=== PATIENT | male | born 1980 | race African-American/Black ===

== ENCOUNTER 2016-06-27 12:53 | Emergency (ER) | payer OTHER ==
[~2016-06-27] VITALS: Ht 185.4 cm; Wt 99.8 kg
[2016-06-27] MEDS ORDERED: MORPHINE 4 MG/ML 1ML SYRINGE IV ONE (13:15)
[2016-06-27] MEDS ORDERED: NS 1,000 ML IV ONE (13:15)
[2016-06-27] MEDS ORDERED: ONDANSETRON 4MG/2ML VIAL (J2405) IV ONE (13:15)
[2016-06-27] MEDS ORDERED: LIDOCAINE 2% MDV 20 ML VIAL SC ONE (13:45)
--- NOTE | 2016-06-27 14:07 | REP ---
Left hand four views: There is posterolateral dislocation of the base of the fifth digit middle phalange. There is no fracture. Mineralization and joint spaces are otherwise unremarkable. Signed by Kyle Alexandra MD 06/27/2016 01:58 P
[2016-06-27] MEDS ORDERED: MORPHINE 4 MG/ML 1ML SYRINGE IV PRN (14:30)
[2016-06-27] MEDS ORDERED: NORCOTAB PO (15:03)
[2016-06-27] MEDS ORDERED: KEFL500C7 PO (15:03)
--- NOTE | 2016-06-27 15:40 | REP ---
Left hand fifth digit four views: Comparison is the left hand series performed earlier today. The dislocation at the fifth digit PIP as been satisfactorily reduced and the digits are in satisfactory position alignment on all views. There is no fracture or foreign body. Signed by Kyle Alexandra MD 06/27/2016 03:32 P
[2016-06-27 15:53] VITALS: BP 122/73
--- NOTE | 2016-06-27 15:53 | HPE ---
DATE OF ADMISSION: 06/27/2016 CHIEF COMPLAINT: Left small finger pain and deformity. HISTORY OF PRESENT ILLNESS: The patient was playing football and a ball struck his hand on the small fingertip. He noticed immediate deformity of his left small finger with an open laceration and exposed bone, and presented promptly to the emergency room. I was consulted and presented to evaluate the patient. He is complaining of pain and deformity isolated to the left hand small finger. He has no other complaints at this time. He has no significant past medical history. PHYSICAL EXAMINATION: On examination, he is awake, alert, and oriented times three, well-appearing male in no acute distress. Focused examination of his left hand small finger: There is an open dislocation with exposed distal one-third of the proximal phalanx. Distally the fingertip is pink and well perfused with sensation grossly intact to light touch, and less than two seconds capillary refill. He does demonstrate intact flexor extensor function in the small finger. Remainder of the examination of the small finger and hand is otherwise negative, to include the wrist and forearm. X-rays of the left hand show complete dislocation of the small finger proximal interphalangeal joint. ASSESSMENT: Open dislocation of the left hand small finger as above. PLAN: After obtaining a verbal consent, I performed a local ring block, followed by a gentle closed reduction. Following this, the digit was taken through a full range of motion and it was stable throughout. Additionally, he demonstrated grossly fully intact flexor and extensor tendon function, and he remained fully neurovascularly intact. The wound had been copiously irrigated prior to this, and it was clean of any debris. He had also been given intravenous (IV) antibiotics and his tetanus was up to date. The wound was again irrigated and closed loosely with a single nylon suture. This was about a 1 cm clean, linear laceration in the small finger web space. He was placed in a well-padded finger splint, and post-reduction x-rays confirmed satisfactory congruent reduction and, again, he remained fully neurovascularly intact after the reduction after a period of monitoring. The plan at this time is he will be discharged to home, appropriate restrictions to protect the hand and small finger. He will be given Keflex, and he will followup with me in the orthopedic clinic at 10 a.m. on [place] for repeat examination, or earlier as needed. Counseled regarding appropriate care of the splint and to leave his dressings intact and monitor the neurovascular status of the small finger. All of his questions were answered, along with I believe his spouse who was present, and they are satisfied with the treatment at this time.
== END 2016-06-27 15:56 | disposition home or self-care (01) ==
LOC: M ED 13:36
DX: S63.287A Dislocation of proximal interphalangeal joint of left little finger, initial encounter (principal); S61.217A Laceration without foreign body of left little finger without damage to nail, initial encounter; W21.01XA Struck by football, initial encounter; Y92.89 Other specified places as the place of occurrence of the external cause; Y93.61 Activity, american tackle football; Y99.8 Other external cause status; Z88.0 Allergy status to penicillin
CPT/HCPCS: 12001; 26770; 73130; 73140; 96365; 96366; 96375; 99283; J0690; J2405

== ENCOUNTER 2017-02-18 15:32 | Observation (INO) | payer OTHER ==
[~2017-02-18] VITALS: Ht 188 cm; Wt 102.4 kg
[~2017-02-18 15:32] MED LIST: KEFL500C17 PO; NORCOTAB PO
[2017-02-18] MEDS ORDERED: NS 1,000 ML IV ONE (16:30)
[2017-02-18 16:40] LABS: BASO % 0.5 % (0.0-1.0); EOS # 0.1 10^3/uL (0.0-0.50); EOS % 0.6 % (0.0-3.0); IMMATURE GRANULOCYTE % 0.4 % (0-0); LYMPH % 25.3 % (24.0-44.0); MEAN CORPUSCULAR HEMOGLOBIN 26.2 pg (27.0-33.0); MEAN CORPUSCULAR HGB CONC 32.9 g/dl (32.0-36.5); MEAN CORPUSCULAR VOLUME 79.6 fl (80.0-96.0); MONO # 0.6 10^3/uL (0.0-0.8); MONO % 7.3 % (0.0-5.0); NEUTROPHILS # 5.2 10^3/uL (1.8-7.7); NEUTROPHILS % 65.9 % (36.0-66.0); PLATELET COUNT, AUTOMATED 208 10^3/uL (150-450); RED CELL DISTRIBUTION WIDTH 13.8 % (11.5-14.5); WHITE BLOOD COUNT 7.8 10^3/uL (4.0-10.0)
--- NOTE | 2017-02-18 16:57 | REP ---
Head CT without contrast: History: Frontal headaches. History of a fall. Comparison study: No comparison study. CT findings: Bone window settings demonstrate an intact bony calvarium. There is no evidence of skull fracture or incidental bony calvarial lesion. The visualized paranasal sinuses appear clear. No intraorbital abnormality is seen. On soft tissue window setting images; the lateral, third, and fourth ventricles are normal in size and position. Colon-white differentiation pattern is normal above and below the tentorium. There are is no evidence of intracranial hemorrhage. No mass, edema, infarction, or midline shift is seen. No extra-axial fluid collection is appreciated. Impression: Negative noncontrast head CT. Signed by Khang Bell MD 02/18/2017 04:49 P
[2017-02-18 17:40] LABS: ALBUMIN 4.3 GM/DL (3.2-5.2); ALBUMIN/GLOBULIN RATIO 1.08 (1.00-1.93); ALKALINE PHOSPHATASE 51 U/L (45-117); ALT/SGPT 29 U/L (12-78); ANION GAP 5 MEQ/L (8-16); AST/SGOT 23 U/L (7-37); BILIRUBIN,DIRECT 0.1 MG/DL (0.0-0.2); BILIRUBIN,TOTAL 0.7 MG/DL (0.2-1.0); BLOOD UREA NITROGEN 15 MG/DL (7-18); CARBON DIOXIDE LEVEL 30 MEQ/L (21-32); CHLORIDE LEVEL 105 MEQ/L (98-107); CREATININE FOR GFR 1.65 MG/DL (0.70-1.30); GLOMERULAR FILTRATION RATE > 60.0 (>60); GLUCOSE, FASTING 88 MG/DL (70-105); SODIUM LEVEL 140 MEQ/L (136-145); TOTAL PROTEIN 8.3 GM/DL (6.4-8.2)
--- NOTE | 2017-02-18 19:19 | REP ---
REASON FOR EXAM: Chest pain. FINDINGS: The superior mediastinal structures are midline. The cardiac silhouette is unremarkable in size, shape, and position. The diaphragmatic surfaces of the lungs are regular, and the costophrenic angles are clear. The pulmonary liu are clear. The imaged osseous structures are intact. IMPRESSION: There is no acute cardiopulmonary disease. Signed by Hua Gregg DO 02/18/2017 07:40 P
[2017-02-18] MEDS: NS 1,000 ML IV SCH (19:45)
[2017-02-18] MEDS ORDERED: NS 1,000 ML IV SCH (20:15)
[2017-02-18] MEDS ORDERED: ACETAMINOPHEN TAB 650MG DOSE (2X325MG) PO PRN (20:15)
--- NOTE | 2017-02-18 20:18 | ECGEPIP ---
Stationary ECG Study [facility] - ED Test Date: 2017-02-18 Pat Name: SHEYLA MCKEON Department: Room: - Gender: M [employer] Supervisor: andrei : 1980 Requested By: Diana Trinh Order Number: [id number] Reading MD: James Solares Measurements Intervals [place] Rate: 80 P: 50 CT: 184 QRS: 19 QRSD: 97 T: -26 QT: 356 QTc: 411 Interpretive Statements SINUS RHYTHM ST ELEVATION CONSISTENT WITH INJURY, PERICARDITIS, OR EARLY REPOLARIZATION CLINICAL CORRELATION NO PRIORS FOR COMPARISON Electronically Signed On 02-18-2017 20:18:26 EST by James Solares
[2017-02-18 22:00] VITALS: BP 119/56
--- NOTE | 2017-02-18 22:13 | HPE ---
DATE OF ADMISSION: 02/18/2017 ATTENDING PHYSICIAN: Dr. Min TRENCH PIPE LAYER: Dr. Marvin, Spindle Setter. CHIEF COMPLAINT: Syncopal episode. HISTORY OF THE PRESENT ILLNESS: The patient is a 36-year-old male without significant past medical history who presented to the emergency room (ER) for evaluation of syncopal episode. The history is provided by himself. Per the patient, he is from [place]. He had an episode of syncope back to 2013. For that, he underwent stress echo test with Dr. Marvin, which reportedly was normal. Since then, he was doing pretty well until today. Around 2:30 p.m., he was running in an indoor track. After running about a quarter mile, he passed out, and he denies any symptoms before syncope happened. He could not remember what happened. He woke himself, and he said he was a little bit confused after syncopal episode. Then, he was brought to the ER for further evaluation. In the ER, his initial workup in the ER is not significant. The medicine service was called for admission. REVIEW OF SYSTEMS: Mild headache after syncopal episode. Denies fever. No chills. No chest pain. No shortness of breath. He states he felt a little bit of tightness in his chest. No abdominal pain. No diarrhea. No constipation. No tingling, numbness, weakness in the arms or lower extremities and all rest of systems reviewed but negative. PAST MEDICAL HISTORY: Syncopal episode in 2013 with negative workup. No history of high blood pressure, diabetes or cardiac arrhythmia. PAST SURGICAL HISTORY: None. ALLERGIES: Allergic to PENICILLIN. MEDICATIONS: No regular medications. FAMILY HISTORY: No family history of sudden or heart issues. SOCIAL HISTORY: Denies tobacco use. Social drinker. No illicit drug abuse. He is a [employer]. PHYSICAL EXAMINATION: VITAL SIGNS: Temperature 98, heart rate 64, respiratory rate 14 , blood pressure 124/68, oxygen saturation 96% in room air. GENERAL: He is awake, alert, oriented times three. He is not in acute distress. HEENT: Atraumatic. Pupils equal, round, reactive to light. No jaundice. Extraocular muscles intact. Ears, nose and throat normal. NECK: No jugular venous distention (JVD), no bruits. LUNGS: Clear. No wheezing, no crackles. HEART: S1, S2, regular. No murmur. ABDOMEN: Soft. Bowel sounds positive, nontender. LOWER EXTREMITIES: No edema in bilateral lower extremities. SKIN: No rash. NEUROLOGIC: Nonfocal. PSYCHOLOGIC: No acute psychosis. DIAGNOSTIC AND LAB STUDIES: Include the following: CBC and differential showed WBC 7.8, hemoglobin and hematocrit 15.7 over 47.1, platelets 208. Sodium 140, potassium 4.0, chloride 105, bicarbonate 30, BUN 15, creatinine 1.65, glucose 88, CK level is mildly elevated at 437. Head CT was negative. EKG reviewed, chest x-ray reviewed, was negative. IMPRESSION: 1. Syncopal episode. 2. Mild rhabdomyolysis and acute renal failure. PLAN: The patient will be admitted for observation. Will continue swiss machinist to rule out any cardiac arrhythmia. Will consult cardiology, Dr. Marvin, Will gently hydrate him and repeat his basic metabolic profile as well as CK level in the morning. AL
[2017-02-19 02:00] VITALS: BP 116/56
[2017-02-19 06:00] VITALS: BP 94/53
[2017-02-19] MEDS: NS 1,000 ML IV SCH ×2 (06:19→15:45)
[2017-02-19 06:38] LABS: MEAN CORPUSCULAR HEMOGLOBIN 26.3 pg (27.0-33.0); MEAN CORPUSCULAR HGB CONC 33.6 g/dl (32.0-36.5); MEAN CORPUSCULAR VOLUME 78.4 fl (80.0-96.0); PLATELET COUNT, AUTOMATED 181 10^3/uL (150-450); RED CELL DISTRIBUTION WIDTH 13.8 % (11.5-14.5); WHITE BLOOD COUNT 6.5 10^3/uL (4.0-10.0)
[2017-02-19 06:59] LABS: ANION GAP 8 MEQ/L (8-16); BLOOD UREA NITROGEN 11 MG/DL (7-18); CALCIUM LEVEL 7.9 MG/DL (8.5-10.1); CARBON DIOXIDE LEVEL 26 MEQ/L (21-32); CHLORIDE LEVEL 109 MEQ/L (98-107); GLOMERULAR FILTRATION RATE > 60.0 (>60); GLUCOSE, FASTING 103 MG/DL (70-105); POTASSIUM SERUM 3.8 MEQ/L (3.5-5.1); SODIUM LEVEL 143 MEQ/L (136-145)
[2017-02-19] MEDS: ENOXAPARIN 30 MG/0.3 ML SYR (J1650) SC SCH (09:25)
[2017-02-19 10:00] VITALS: BP 121/63
[2017-02-19 14:00] VITALS: BP 139/58
--- NOTE | 2017-02-19 16:05 | IPN ---
DATE: 02/19/2017 SUBJECTIVE: The patient tells me that he is feeling completely back to normal at this time and has no significant complaints. He tells me that he is feeling much better. OBJECTIVE: Vital signs: Temperature 98.2, pulse 55, respiratory rate 17, blood pressure 94/53, oxygen saturation 96% on room air. General: He is a well built, young, muscular -[place] male, sitting in bed, in no acute distress. HEENT: Cranial nerves II-XII are grossly intact. He has moist mucous membranes. No carotid bruits. Cardiovascular exam: S1, S2, regular. Respiratory exam is clear. Abdominal exam is benign. Extremities: No clubbing, cyanosis or edema. LABORATORY STUDIES: WBC 6.5, hemoglobin 13.5, platelet count 181. Chemistry panel: Sodium 143, potassium 3.8, chloride 109, bicarbonate 26, BUN 11, creatinine 1.4 down from 1.6, total CK is 418 down from 437, troponin is 0.15 up from 0.10, TSH within normal limits IMAGING: The patient did have a CT scan of the head that was a negative noncontrast study. He also did have a chest x-ray, which revealed no acute cardiopulmonary disease. ASSESSMENT AND PLAN: This is a 36-year-old man with recurrent bouts of syncope and mild rhabdomyolysis with acute kidney injury. PROBLEMS: 1. Recurrent syncope. He is monitored on remote telemetry. Dr. Marvin's help is greatly appreciated. I did confirm with him today that he will see the patient in consultation. He had previously had an echocardiogram and worked him up on the outpatient setting with a stress test in the past. However, he has had recurrent episodes of syncope and there is an equivocal troponin at this time. 2. Acute kidney injury improving without intravenous (IV) fluid. 3. Mild rhabdomyolysis possibly related to dehydration and mild rhabdomyolysis does appear to be resolving. Will continue to monitor for now. DISPOSITION: Pending cardiology evaluation and improvement in renal function. I suspect he may be able to be discharged over the next 24-48 hours.
[2017-02-19 18:00] VITALS: BP 128/60
--- NOTE | 2017-02-19 19:42 | ECHO ---
DATE OF PROCEDURE: 02/19/2017 REFERRING PHYSICIAN: Dona Min MD PATIENT LOCATION: Room 4217 REASON FOR ECHOCARDIOGRAM: Cardiac arrhythmias. 2D MEASUREMENTS: IVS: 1.3 cm LV: 5.0 cm LVPW: 1.3 cm LA: 3.6 cm Aorta: 3.8 cm IVC: 1.6 cm DOPPLER MEASUREMENTS: Peak velocity across the aortic valve: 1.3 m/s Peak velocity across the LVOT: 1.1 m/s Mitral E: 0.83, Mitral A: 0.63, with a ratio of 1.3 2D COMMENTS: 1. Normal left ventricular size with probably mildly increased left ventricular wall thickness. Left ventricular systolic function is normal with a left ventricular ejection fraction (LVEF) estimated at 65 to 70%. 2. Normal left atrium. The right atrium appeared to be minimally enlarged in limited views. The right ventricle free wall was not well visualized. 3. The atrial septum appeared to be normal without evidence of defect or shunt. 4. Mildly dilated aortic root at 3.8 cm. 5. No pericardial effusion seen. 6. The aortic valve, mitral valve, tricuspid valve and pulmonic valve appeared to be normal. The proximal pulmonary artery branches were not well visualized. 7. The inferior vena cava is normal in size, central venous pressure is most likely normal. DOPPLER: It detects mild mitral regurgitation and trace tricuspid regurgitation. The calculated pulmonary artery systolic pressure was normal. Assessment of the left ventricular diastolic function appeared to be normal. IMPRESSION: 1. Normal global left ventricular systolic function with probably mild concentric left ventricular hypertrophy. 2. Mild mitral regurgitation. 3. Trace tricuspid regurgitation. 4. Mildly dilated aortic root at 3.8 cm.
[2017-02-19 22:00] VITALS: BP 138/70
[2017-02-20] MEDS: NS 1,000 ML IV SCH (01:45)
[2017-02-20 02:00] VITALS: BP 113/62
[2017-02-20 05:44] LABS: MEAN CORPUSCULAR HEMOGLOBIN 25.9 pg (27.0-33.0); MEAN CORPUSCULAR HGB CONC 32.9 g/dl (32.0-36.5); MEAN CORPUSCULAR VOLUME 78.5 fl (80.0-96.0); PLATELET COUNT, AUTOMATED 160 10^3/uL (150-450); RED CELL DISTRIBUTION WIDTH 13.8 % (11.5-14.5); WHITE BLOOD COUNT 5.9 10^3/uL (4.0-10.0)
[2017-02-20 06:00] VITALS: BP 129/78
[2017-02-20 06:08] LABS: ANION GAP 6 MEQ/L (8-16); BLOOD UREA NITROGEN 10 MG/DL (7-18); CALCIUM LEVEL 8.3 MG/DL (8.5-10.1); CARBON DIOXIDE LEVEL 28 MEQ/L (21-32); CHLORIDE LEVEL 109 MEQ/L (98-107); CREATININE FOR GFR 1.24 MG/DL (0.70-1.30); GLOMERULAR FILTRATION RATE > 60.0 (>60); GLUCOSE, FASTING 95 MG/DL (70-105); SODIUM LEVEL 143 MEQ/L (136-145)
[2017-02-20] MEDS: ENOXAPARIN 30 MG/0.3 ML SYR (J1650) SC SCH (08:56)
[2017-02-20 10:00] VITALS: BP 135/85
--- NOTE | 2017-02-20 11:33 | DSES ---
DATE OF ADMISSION: 02/18/2017 DATE OF DISCHARGE: DISCHARGE DIAGNOSIS: Syncope. SECONDARY DIAGNOSES: 1. Acute kidney injury. 2. Rhabdomyolysis. HOSPITAL COURSE: The patient is a 36-year-old man who has had recurrent bouts of syncope over the last several years. He has been seen and evaluated by Dr. Marvin in the past and had a stress test previously and was told everything was normal. While he was working out as part of his active duties, he was running on the track and had an episode where he lost consciousness during strenuous activity, as it was for his previous episode as well. There is no family history of sudden cardiac . He was admitted to telemetry monitoring. He did have an echocardiogram, which Dr. Marvin read and it revealed normal global LV systolic function, mild concentric left ventricular hypertrophy, mild mitral regurgitation, trace tricuspid regurgitation and mildly dilated aortic root at 3.[address] Marvin did see the patient in consultation while he was here and stated that the patient was stable for discharge home with close followup in his office on Wednesday for an event monitor. SUBJECTIVE: Today, the patient tells me that he is feeling better and feels back to baseline and normal since the event. OBJECTIVE: Vital signs: Temperature 97.6, pulse 72, respiratory rate 16, blood pressure 129/78, oxygen saturation 98% on room air. General: He is a well built, -[place] male, lying in bed. He does not appear to be in any acute distress. HEENT: Cranial nerves II-XII are grossly intact. He has moist mucous membranes. No elevation in central venous pressure. Cardiovascular exam: S1, S2, regular. Respiratory exam is clear. Abdominal exam is benign. Extremities: No clubbing, cyanosis or edema. LABORATORY STUDIES: WBC 5.9, hemoglobin 13.6, platelet count 160. Chemistry panel: Sodium 143, potassium 4.0, chloride 109, bicarbonate 28, BUN 10, creatinine 1.2. He did have an equivocal troponin at 0.15 peak, and it trended down to 0.13. IMAGING: He did have a CT scan of the head which was a negative noncontrast head CT. He also had a chest x-ray, which revealed no acute cardiopulmonary disease. ASSESSMENT AND PLAN: This is a 36-year-old man with unexplained recurrent bouts of syncope associated with activity. PROBLEMS: 1. Recurrent syncope associated with intense activity. Dr. Marvin will see the patient on Wednesday and place an event monitor on him. He may warrant referral to healthcare network consultant. Dr. Marvin's help is greatly appreciated. Echocardiogram has been outlined as above. He has had a negative stress test in the past. His equivocal troponin is curious, but did resolve. We will defer to his welfare officer. 2. Acute kidney injury improved with intravenous (IV) fluid. 3. Mild rhabdomyolysis, improved with IV fluids. DISPOSITION: The patient is being discharged home. He is independent of his activities of daily living. He is at his functional baseline. His symptoms have resolved. He will require further followup with Dr. Marvin within 7 days. He is to followup with his primary care provider within 7 days as well. He will have an event recorder placed on Wednesday. No driving until followup with Dr. Marvin. His diet is as prior to admission. He is to return to the emergency room if symptoms worsen. The patient was on no medications prior to admission and is not being discharged on any medications.
== END 2017-02-20 12:49 | disposition home or self-care (01) ==
LOC: M ED 15:32 → M ED INP 20:15 → M MSPAV 22:45
PROVIDERS: ADMIT Hospitalist; ATTEND Internal Medicine
DX: R55 Syncope and collapse (principal); N17.9 Acute kidney failure, unspecified; M62.82 Rhabdomyolysis; R51 Headache; I34.0 Nonrheumatic mitral (valve) insufficiency; I36.1 Nonrheumatic tricuspid (valve) insufficiency; I35.0 Nonrheumatic aortic (valve) stenosis

== ENCOUNTER 2017-05-30 12:57 | Emergency (ER) | payer OTHER | END 2017-05-30 13:36 | disposition home or self-care (01) | LOC: M ED 12:57 | DX: M79.671 Pain in right foot (principal); T69.8XXA Other specified effects of reduced temperature, initial encounter; Z88.0 Allergy status to penicillin; Z79.51 Long term (current) use of inhaled steroids | CPT/HCPCS: 99282 ==